=== PATIENT | male | born 1955 | race Native Hawaiian/Other Pacific Islander ===

== ENCOUNTER → 2017-02-07 18:28 | Outpatient (CLI) | payer OTHER ==
[~2017-02-07 18:28] MED LIST: ASPI-93 PO; DIAZ5TAB20 PO; OXYCONTIN15 MG PO; PROPRANOLOL120 MG OR; TIZA4TAB5 PO
== END | disposition home or self-care (01) ==
LOC: AMB 18:28
DX: R06.02 Shortness of breath (principal); R07.89 Other chest pain

== ENCOUNTER 2019-06-23 08:00 | Day surgery (SDC) | payer OTHER ==
[2019-06-23 08:48] LABS: PLATELET COUNT 265 K/uL (142-355)
== END 2019-06-23 10:26 | disposition home or self-care (01) ==
LOC: OR 08:00
PROVIDERS: Internal Medicine
DX: Z53.8 Procedure and treatment not carried out for other reasons (principal); Z12.11 Encounter for screening for malignant neoplasm of colon; Z86.010 Personal history of colon polyps
CPT/HCPCS: 80053; 85027

== ENCOUNTER 2020-07-14 09:58 | Emergency (ER) | payer OTHER ==
[~2020-07-14] VITALS: Ht 182.9 cm; Wt 78.0 kg
[2020-07-14 10:17] LABS: PLATELET COUNT 248 K/uL (142-355)
[2020-07-14 10:22] LABS: POTASSIUM 4.1 mmol/L (3.6-5.2); SODIUM 139 mmol/L (136-145)
[2020-07-14 17:18] VITALS: BP 126/82; TEMP 97.6
== END 2020-07-14 17:18 | disposition home or self-care (01) ==
LOC: ED 09:58
PROVIDERS: Emergency Medicine
DX: R07.89 Other chest pain (principal); F41.8 Other specified anxiety disorders
CPT/HCPCS: 80053; 82550; 82553; 84484; 85027; 93005; 99284